=== PATIENT | female | born 1985 | race Caucasian/White ===

== ENCOUNTER 2017-11-04 14:10 | Inpatient (IN) | payer OTHER ==
[2017-11-04] MEDS ORDERED: TERBUTALINE SULFATE 1 MG/ML VIAL SC ONE (14:45)
[2017-11-04 15:23] LABS: PLATELET COUNT 264 10^3/uL (150-400)
[2017-11-04] MEDS: ACETAMINOPHEN 500 MG TAB PO PRN (19:18)
[2017-11-04] MEDS ORDERED: BETAMETHASONE IM SYRINGE IM ONE (19:57)
[2017-11-04] MEDS ORDERED: CALCIUM GLUC 10% 1 GM/10 ML VIAL IVP PRN (19:58)
[2017-11-04] MEDS ORDERED: MAGNESIUM SULF 4 GM/WATER 100 ML IV ONE (19:58)
[2017-11-04] MEDS ORDERED: Mag Sulf 500 ML IV SCH (20:00)
[2017-11-04] MEDS ORDERED: MISOPROSTOL 200 MCG TAB ONE (20:11)
[2017-11-04] MEDS ORDERED: OXYTOCIN 10 UNIT/ML VIAL ONE (20:11)
[2017-11-04] MEDS: CALCIUM CARBONATE 500 MG CHEWABLE TAB PO PRN (20:22)
--- NOTE | 2017-11-04 20:55 | GHP ---
[f rep st] PREOP HISTORY AND PHYSICAL DATE OF ADMISSION: 11/04/2017 ADMISSION DIAGNOSES: 1. Intrauterine at 36 and 5/7 weeks' gestation. 2. Severe preeclampsia. 3. History of previous low transverse section. INDICATIONS: The patient is a 32-year-old, 2, para 1-0-0-1 who is 36 and 5/7 weeks' gestatio n. The patient's has been overall uncomplicated. She was seen in the office last week and noted to have a slightly elevated blood pressure of 146/88. PIH labs were obtained, which showed an elevated ALT of 81. No proteinuria was noted. She had PIH labs repeated 2 days later, and her ALT had decreased to 56. Her blood pressure was 148/88. The patient states overall she has been feeling okay; however, she has developed a progressively worsening headache. The patient normally does have migraines; however, she states this feels different and is not resolving under the usual measures. The patient was sent over today from Labor and Delivery for evaluation. Her blood pressures on Labor and Delivery are 148/92, 145/90. status is reassuring. A long discussion was had with the robbie mcguire. She has history of previous low transverse section. Her cervix is closed. She was scheduled for repeat in several weeks. Her PIH labs were obtained, and her LFTs have incre ased. AST is 70, and ALT is 92. Because of the persistent headache despite interventions and the el evated liver functions, decision was made to admit the patient for further dose of steroids, to start magnesium sulfate, and to proceed with section in the morning. The patient and her are agreeable with this plan. PAST MEDICAL HISTORY: Significant for history of anxiety and depression, celiac disease. MEDICATIONS: vitamins, iron, and Lexapro 20 mg a day. SURGICAL HISTORY: section. ALLERGIES: No known drug allergies. SOCIAL HISTORY: The patient works in [employer] at [employer]. She is . She live s with her and their other child. She denies tobacco, alcohol, or drug use. FAMILY MEDICAL HISTORY: Noncontributory. OBSTETRICS/GYNECOLOGIC HISTORY: Menarche age 12. Periods every 30 days, lasting 8-9 days. She is a 2, para 1-0-0-1. In 07/2014, she had a primary low transverse section at 38 and 4/ 7 weeks for concern that patient was going to become preeclamptic. Per patient, that was c omplicated by GDM and PUPPS. She had a because her cervix was not favorable for induction. Current : She has had GDM-A1 but has otherwise been uncomplicated with the exception of dev elopment of elevated blood pressures in the last week and a half of . The patient does have a history of an abnormal Pap 3 years ago. She had a colposcopy which was negative. She denies any history of any sexually transmitted diseases. REVIEW OF SYSTEMS: 10-point review of systems was negative with the exception of the above-mentioned pertinent positives. There is positive movement. No loss of fluid. No vaginal bleeding. No t nahed. She does have a persistent headache which is not resolving. She denies any nausea, v omiting, fevers, or chills. She does has have intermittent scotomata and blurry vision. PHYSICAL EXAMINATION: VITAL SIGNS: Stable in the 140s over 90s, but otherwise normal. GENERAL APPE ARANCE: Alert and oriented x3. PSYCHIATRIC: She has appropriate affect. NECK: Mobile and supple. HEART: Rate is regular/regular. LUNGS: Clear to auscultation bilaterally. ABDOMEN: Gravid, non distended, nontender. EXTREMITIES: No calf tenderness. There is bilateral lower extremity edema. NEUROMUSCULAR: Grossly intact. MUSCULOSKELETAL: Grossly intact. CERVICAL: Deferred. heart tracing is category 1. LABORATORY VALUES: Blood type A positive. Antibody screen negative. Rubella immune. GBS is unknow n. HBsAg negative. HIV negative. Her 50 g glucose was elevated. She had an abnormal 3-hour glucos e tolerance test which diagnoses her gestational diabetes. [facility] labs: Creatinine is 0.8, AST is 70, ALT is 92, LDH is 459. Hemoglobin 11.5, hematocrit is 36, and her platelets are 264, white count is 10.4. ASSESSMENT AND PLAN: 32-year-old, 2, para 1-0-0-1 who is 36 and 5/7 weeks' gestation with se jimmy preeclampsia based on symptoms and elevated liver enzymes. The patient will be started on magne sium sulfate. She will be given 1 dose of betamethasone and will have a repeat section in morning. The patient has been properly consented and will be observed closely overnight. /[id number]/MODL
[2017-11-04] MEDS ORDERED: LIDOCAINE 2% JELLY 5 ML TUBE ONE (23:27)
[2017-11-04] MEDS ORDERED: LIDOCAINE 2% JELLY 5 ML TUBE TP ONE (23:51)
[2017-11-05] MEDS: CALCIUM CARBONATE 500 MG CHEWABLE TAB PO PRN (00:04)
[2017-11-05] MEDS: ACETAMINOPHEN 500 MG TAB PO PRN (01:19)
[2017-11-05] MEDS ORDERED: CITRIC ACID/SODIUM CITRATE 30 ML UDCUP PO ONE (05:41)
[2017-11-05] MEDS ORDERED: ceFAZolin 2 GM/DEXTROSE 100 ML IV ONE (05:41)
[2017-11-05] MEDS ORDERED: LR 1,000 ML IV SCH (06:00)
[2017-11-05] MEDS ORDERED: CEFAZOLIN 1 GM/DEXTROSE/50 ML BAG IV ONE (07:24)
[2017-11-05] MEDS ORDERED: LIDOCAINE 1% 2 ML INJ ONE (07:59)
[2017-11-05 08:44] LABS: PLATELET COUNT 307 10^3/uL (150-400)
--- NOTE | 2017-11-05 08:52 | PREANESOB ---
Obstetric Pre-Anesthesia Info - General Info Proposed Procedure: Repeat C Section. : 2 Para: 1 YOANA: 11/27/17 Gestational Age: 36 week(s) and 5 day(s) - Info Status: Premature Monitors: External FHR Baseline (bpm): 135 FHR Pattern: Reassuring - Labor Status PIH: Severe Magnesium Sulfate in Use: Yes Section History: Repeat Indications for Current Section: Other (Specify) (Preeclampsia.) Labor Epidural: No Anesthesia ROS: Prior C Section with spinal anesthesia. History of anxiety/depression and migraines. Celiac disease. Allergies/Adverse Reactions: Allergy/AdvReac Type Severity Reaction Status Date / Time No Known Allergies Allergy Unverified 11/04/17 14:45 Home Medications: Medication Instructions Recorded Escitalopram Oxalate [Lexapro] 1 tab PO DAILY 11/04/17 Iron 1 tab PO DAILY 11/04/17 1 tab PO DAILY 11/04/17 Visit Medications: Generic Name Dose Route Start Last Admin Trade Name Freq PRN Reason Stop Dose Admin Acetaminophen 1,000 mg 11/04/17 19:08 11/05/17 01:19 Tylenol PO 05/03/18 19:07 1,000 mg Q6HRS PRN Administration Pain, Mild/Fever, Can Take PO Calcium Carbonate 500 mg 11/04/17 19:31 11/05/17 00:04 Tums PO 05/03/18 19:30 500 mg TID PRN Administration Indigestion Calcium Gluconate 1 gm 11/04/17 19:58 Calcium Gluconate IVP 05/03/18 19:57 PRN PRN Magnesium Toxicity Escitalopram Oxalate 20 mg 11/05/17 09:00 Lexapro PO 05/04/18 08:59 DAILY AMBROCIO Magnesium Sulfate 500 mls @ 25 mls/hr 11/04/17 20:00 11/04/17 22:33 Magnesium Sulfate 20 Gm/ 500 Ml (Premix) IV 05/03/18 19:59 500 mls CONT AMBROCIO Administration Lactated Ringer's 1,000 mls @ 125 mls/hr 11/05/17 06:00 Lr IV 11/06/17 05:59 CONT AMBROCIO Discontinued Medications Generic Name Dose Route Start Last Admin Trade Name Freq PRN Reason Stop Dose Admin Betamethasone Acet/Betameth SodPhos 12 mg 11/04/17 19:57 11/04/17 20:23 Celestone Im Syringe IM 11/04/17 19:58 12 mg ONCE ONE Administration Cefazolin Sodium/Dextrose Confirm 11/05/17 07:24 Ancef 1 Gm (Premix) Administered 11/05/17 07:25 Dose 2 gm IV .STK-MED ONE Citric Acid/Sodium Citrate 30 ml 11/05/17 05:41 11/05/17 08:28 Bicitra PO 11/05/17 05:42 30 ml ONCALL ONE Administration Magnesium Sulfate 100 mls @ 200 mls/hr 11/04/17 19:58 11/04/17 22:33 Magnesium Sulf 4 Gm (Premix) IV 11/04/17 20:27 100 mls ONCE ONE Administration Cefazolin Sodium/Dextrose 100 mls @ 200 mls/hr 11/05/17 05:41 11/05/17 08:25 Ancef 2 Gm (Premix) IV 11/05/17 06:10 100 mls ONCALL ONE Administration Protocol Lidocaine Confirm 11/04/17 23:27 Lidocaine 2% Jelly Administered 11/04/17 23:28 Dose 5 mackenzie .ROUTE .STK-MED ONE Lidocaine 1 mackenzie 11/04/17 23:51 11/05/17 06:45 Lidocaine 2% Jelly TP 11/04/17 23:52 1 mackenzie ONCE ONE Administration Lidocaine HCl Confirm 11/05/17 07:59 Lidocaine Hcl 1% Administered 11/05/17 08:00 Dose 2 ml .ROUTE .STK-MED ONE Misoprostol Confirm 11/04/17 20:11 Cytotec Administered 11/04/17 20:12 Dose 1,000 mcg .ROUTE .STK-MED ONE Oxytocin Confirm 11/04/17 20:11 Pitocin Administered 11/04/17 20:12 Dose 30 unit .ROUTE .STK-MED ONE Terbutaline Sulfate 0.25 mg 11/04/17 14:45 11/04/17 17:28 Brethine SC 11/04/17 14:46 Not Given ONCE ONE - Anesthesia History Response to Local Anesthetics: Normal Anesthesia & Operative History: No Prior Problems Family Anesthesia History: Negative - Social History Substance Use/Abuse: Denies - Vital Signs Blood Pressure: 167/82 Heart Rate: 103 Respiratory Rate: 20 Height/Weight (Nursing): Height 157.48 cm Weight 100.698 kg - Focused Exam Neck exam: FROM Mallampati Score: Class 2 Mouth exam: normal dental/mouth exam Pulmonary: no respiratory distress, clear to auscultation Cardiovascular: regular rate and rhythym, no murmur, rub, or gallop Labs: 11/05/17 08:30 Patient ABO/Rh A POSITIVE 11/04/17 20:35 Uric Acid 5.6 mg/dL (2.5-6.8) 11/04/17 15:00 Total Bilirubin 0.3 mg/dL (0.1-1.4) 11/04/17 15:00 Conjugated Bilirubin 0.3 mg/dL (0.0-0.5) 11/04/17 15:00 Unconjugated Bilirubin 0.0 mg/dL (0.0-1.1) 11/04/17 15:00 AST 70 IU/L (14-46) H 11/04/17 15:00 ALT 92 IU/L (9-52) H 11/04/17 15:00 Lactate Dehydrogenase 459 IU/L (313-618) 11/04/17 15:00 - Plan Anesthetic Plan: SAB Consent Signed and on Chart: Yes Patient/Guardian Understands and Agrees to Plan: Yes
[2017-11-05] MEDS ORDERED: fentaNYL 100 MCG/2 ML INJ ONE ×2 (09:42→11:32)
[2017-11-05] MEDS ORDERED: morphINE PF 5 MG/10 ML INJ ONE (09:42)
[2017-11-05] MEDS ORDERED: DEXAMETHASONE 4 MG/ML VIAL ONE ×2 (09:47→10:59)
[2017-11-05] MEDS ORDERED: ONDANSETRON 4 MG/2 ML VIAL ONE ×2 (09:47→10:58)
[2017-11-05] MEDS ORDERED: PHENYLEPHRINE HCL 100 MCG/ML SYR ONE (10:58)
[2017-11-05] MEDS ORDERED: OXYTOCIN 100 UNITS/10 ML VIAL ONE (10:59)
[2017-11-05] MEDS ORDERED: PROPOFOL 200 MG/20 ML VIAL ONE (11:34)
[2017-11-05] MEDS ORDERED: DOCUSATE SODIUM 100 MG CAP PO PRN (12:13)
[2017-11-05] MEDS ORDERED: SIMETHICONE 80 MG TAB CHEW PO PRN (12:13)
[2017-11-05] MEDS ORDERED: POLYETHYLENE GLYCOL 3350 17 GM PKT PO PRN (12:13)
[2017-11-05] MEDS ORDERED: MAGNESIUM HYDROXIDE 30 ML UDCUP PO PRN (12:13)
[2017-11-05] MEDS ORDERED: PROMETHAZINE HCL 25 MG/ML INJ IVP PRN (12:13)
[2017-11-05] MEDS ORDERED: BISACODYL 10 MG SUPP PR PRN (12:13)
[2017-11-05] MEDS ORDERED: LACTULOSE 20 GM/30 ML UDCUP PO PRN (12:13)
--- NOTE | 2017-11-05 12:20 | OBDEL ---
Info Type: Repeat Presentation at Delivery: Vertex L&D Analgesia/Anesthesia Type: Spinal GBS+: Yes Intrapartum Medications: Generic Name Dose Route Start Last Admin Trade Name Quintonq PRN Reason Stop Dose Admin Acetaminophen 1,000 mg 11/04/17 19:08 11/05/17 01:19 Tylenol PO 05/03/18 19:07 1,000 mg Q6HRS PRN Administration Pain, Mild/Fever, Can Take PO Calcium Carbonate 500 mg 11/04/17 19:31 11/05/17 00:04 Tums PO 05/03/18 19:30 500 mg TID PRN Administration Indigestion Magnesium Sulfate 500 mls @ 25 mls/hr 11/04/17 20:00 11/04/17 22:33 Magnesium Sulfate 20 Gm/ 500 Ml (Premix) IV 05/03/18 19:59 500 mls CONT AMBROCIO Administration Discontinued Medications Generic Name Dose Route Start Last Admin Trade Name Quintonq PRN Reason Stop Dose Admin Betamethasone Acet/Betameth SodPhos 12 mg 11/04/17 19:57 11/04/17 20:23 Celestone Im Syringe IM 11/04/17 19:58 12 mg ONCE ONE Administration Citric Acid/Sodium Citrate 30 ml 11/05/17 05:41 11/05/17 09:28 Bicitra PO 11/05/17 05:42 30 ml ONCALL ONE Administration Magnesium Sulfate 100 mls @ 200 mls/hr 11/04/17 19:58 11/04/17 22:33 Magnesium Sulf 4 Gm (Premix) IV 11/04/17 20:27 100 mls ONCE ONE Administration Cefazolin Sodium/Dextrose 100 mls @ 200 mls/hr 11/05/17 05:41 11/05/17 09:25 Ancef 2 Gm (Premix) IV 11/05/17 06:10 100 mls ONCALL ONE Administration Protocol Lidocaine 1 mackenzie 11/04/17 23:51 11/05/17 06:45 Lidocaine 2% Jelly TP 11/04/17 23:52 1 mackenzie ONCE ONE Administration Terbutaline Sulfate 0.25 mg 11/04/17 14:45 11/04/17 17:28 Brethine SC 11/04/17 14:46 Not Given ONCE ONE - Infant Care Provider Business Line Manager/SPORTS MANAGEMENT INTERN: Rachell Gilman Indications for Delivery: Preeclampsia Severe (Previous c/s) Operative Report - Delivery Pre-op Diagnoses: IUP @ 36 6/7 with previous c/s with newly diagnosed preeclampsia with severe features on mag sulfate Post-op Diagnoses: IUP @ 36 6/7 with previous c/s with newly diagnosed preeclampsia with severe features on mag sulfate History of Prior Section: Yes Number of Prior Sections: 1 Nulliparous Prior to Delivery: No Indications for Prior Section: Other (Specify) (Unfavorbale cervix, suspect preeclampsia) Indications for Current Section: Other (Specify) (Preeclampsia with severe features) Procedure: Scheduled, Low Transverse (High transnverse incision was made secondary to adhered bladder to SHELTON) Surgeon: Livier Becerril [facility]: Linda Moody) Anesthesiologist: Nick Bourgeois Complications: Other (Specify) (Adhesions) Findings: A viable female infant born at 1050 in cephalic presentation with 8 and 9 Apgars. Clear amniotic fluid. Omental adhesion to anterior abdominal wall.Delayed cord clamping x 60 sec. Cord blood obtained. Placenta delivered intact with 3-vc. Omental adhesions were noted to ant abdominal wall. Bladder was adhered to [place] and a high transverse incision on uterus was made. Grossly normal appearing tubes and ovaries b/l. Specimen(s)/Path: Other (Specify) (none) IV Fluid (ml): 2,500 EBL: 800cc UO: 200 cc clear urine Drains: Jonas Gore Data YOANA: 11/27/17 Gestational Age: 36 week(s) and 6 day(s) [place] Delivery Date: 11/05/17 Delivery Time: 10:50 Sex of Infant: Female Score (1 Min): 8 Score (5 Min): 9 ICD10 Worksheet Patient Problems: Problems Problem Status Onset Pre-eclampsia affecting , antepartum Acute Previous section complicating Acute Status post repeat low transverse section Acute - ICD10 Problem Qualifiers (1) Pre-eclampsia affecting , antepartum (2) Previous section complicating (3) Status post repeat low transverse section
[2017-11-05] MEDS ORDERED: NALOXONE HCL 0.4 MG/ML INJ IVP PRN (12:23)
[2017-11-05] MEDS ORDERED: HYDROmorphONE/DILAUDID 1 MG/ML INJ IVP PRN (12:23)
[2017-11-05] MEDS ORDERED: PHENYLEPHRINE HCL 100 MCG/ML SYR IVP PRN (12:23)
[2017-11-05] MEDS ORDERED: ONDANSETRON 4 MG/2 ML VIAL IVP PRN (12:23)
[2017-11-05] MEDS ORDERED: MAGNESIUM SULFATE 20 GM in D5W 500 ML IV SCH (12:30)
[2017-11-05] MEDS ORDERED: KETOROLAC 30 MG/1 ML SDV ONE (13:19)
[2017-11-05] MEDS: KETOROLAC 30 MG/1 ML SDV IVP SCH ×2 (13:21→19:35)
[2017-11-05] MEDS ORDERED: SCOPOLAMINE HYDROBROMIDE 1 MG/3 DAYS PATCH TD ONE ×2 (14:16→14:27)
--- NOTE | 2017-11-05 14:27 | POSTANESTH ---
Post Anesthetic Evaluation Cardiovascular Status: Normal, Stable, Similar to Pre-Op Cond Respiratory Status: Normal, Stable, Similar to Pre-op Cond. Level of Consciousness/Mental Status: Can Participate in Eval, Alert and Oriented Pain Control: Adequate, Prn Tx Ordered Nausea/Vomiting Control: Inadeq, Add Tx Reqired (Some nausea during recovery getting scopolamine patch.) Complications Possibly Related to Anesthesia: None Noted
[2017-11-05] MEDS: ESCITALOPRAM OXALATE 10 MG TAB PO SCH (18:31)
[2017-11-05] MEDS: SENNOSIDES/DOCUSATE SODIUM TAB PO SCH (23:09)
[2017-11-06] MEDS: HYDROmorphONE/DILAUDID 1 MG/ML INJ IVP PRN ×3 (00:59→11:37)
[2017-11-06] MEDS: KETOROLAC 30 MG/1 ML SDV IVP SCH ×3 (01:13→13:45)
--- NOTE | 2017-11-06 06:06 | GOP ---
[f rep st] OPERATIVE REPORT DATE OF OPERATION: 11/05/2017 SURGEON: Livier Becerril DO PERSONNEL WORKER: Aileen Simmons MD and MARIBEL Steven. ANESTHESIA: Spinal. ANESTHESIOLOGIST: Dr. Nick Bourgeois. PREOPERATIVE DIAGNOSIS: Intrauterine at 36 and 6 weeks' gestation with a history of a previous low transverse section with newly diagnosed preeclampsia with severe features. POSTOPERATIVE DIAGNOSIS: Intrauterine 36 and 6 weeks with a history of prior low transverse with newly diagnosed preeclampsia with severe features. PROCEDURE PERFORMED: 1. Repeat transverse section. 2. Lysis of adhesions. FINDINGS: A viable female born at 1015, in cephalic presentation with 8 and 9 Apgars. Clear amniotic fluid noted upon entry to amniotic sac. Delayed cord clamping x60 seconds. Cord blood was obtained. Placenta delivered intact with 3-vessel cord. There were omental adhesions noted to the anterior abdominal wall as well as bladder adherent to lower uterine segment so a high transverse incision on the uterus was made. Grossly normal appearing tubes and ovaries bilaterally. ESTIMATED BLOOD LOSS: 800 cc. INDICATIONS: Patient is a 32-year-old, 2, para 1-0-0-1 at 36 and 6 weeks with a previous who has newly diagnosed preeclampsia with severe features on magnesium sulfate. The patient has had elevated blood pressures 140s to 150s systolic over 80s to 90s diastolic over the last 2 weeks with elevated liver enzymes. Now with worsening headaches and new complaint of visual changes in the last 48 hours. The patient was given rescue steroids and started on magnesium sulfate. The patient understands all risks of the procedure including bleeding, infection, damage to surrounding organs, and wants to proceed with surgery at this time. Patient was properly consented. DESCRIPTION OF PROCEDURE: Patient was taken to the operating room where she was given spinal anesthesia with some difficulty. She was then prepped and draped in the usual sterile manner, and placed in supine position with leftward tilt. Powell catheter was already placed in her bladder. After adequate anesthesia was assured, a Pfannenstiel skin incision was made 2 cm above the previous scar that was noted on top of the mons. The incision was carried down to the underlying fascia with the Bovie. The fascia was then incised in the midline. Fascial incision was then extended laterally with Dior scissors. The superior aspect of the fascial incision was grasped with Ramon clamps, elevated, and rectus muscles dissected off sharply. Inferior aspect of the fascial incision was then grasped with Ramon clamps, elevated, and rectus muscles dissected off sharply. Rectus muscle was then in the midline. Peritoneum was then visualized and entered bluntly. There was difficulty extending the incision superiorly and inferiorly. There were noted to be omental adhesions here. The incision was extended superiorly with the knife, paying careful attention to the omentum, and then inferiorly in the same fashion. There was inadequate visualization of the bladder at this time. It seemed to be adhered densely to the lower uterine segment and the previous incision. A bladder blade was inserted. The vesicouterine peritoneum was unable to be identified, so at this time a decision was made to make a higher transverse uterine incision. The incision was extended anteriorly and posteriorly digitally. There was clear amniotic fluid noted upon entry to the amniotic sac. Baby girl was then delivered in cephalic presentation without difficulty. Mouth and nose were bulb suctioned. We delayed cord clamping for 1 minute. The cord was then clamped x2 and cut and the infant handed off to an awaiting nurse practitioner. Cord blood was obtained and sent. Placenta was then removed spontaneously intact with 3-vessel cord. Uterus was then exteriorized and at this point noted to have omental adhesions both posteriorly and anteriorly. These were lysed. The uterus was then cleared of all clots and debris. The uterine incision was then repaired with 0 Vicryl in a running, locked fashion. Hemostasis was noted. A second imbricating layer of suture was then performed with 0 Vicryl very carefully, not knowing exactly the location of the bladder. At this time, we did try to feel for the Powell bulb. That was noted, and careful attention was made while placing further stitches in the uterus, [id number] stitches for hemostasis. Hemostasis was finally achieved. The uterus was then returned to the abdomen. The gutters were cleared of all clots and debris. Reinspection of the uterine incision revealed some oozing so at this time surgical Lavell was placed, and hemostasis was achieved. The rectus muscles were then reapproximated with 2-0 Vicryl, in an inverted mattress fashion. The fascia was then closed with 0 Vicryl in a running fashion. Hemostasis was noted. The skin was then closed with 4-0 Vicryl on a Erik needle. The patient tolerated the procedure well. There were no complications. Sponge, lap, needle and instrument counts were correct x2. The patient was then taken to the recovery room in stable condition. IV FLUIDS: 2500 cc LR. URINE OUTPUT: 200 cc of clear urine at the end of the procedure. COMPLICATIONS: None. /[id number]/MODL MTDD
[2017-11-06 06:32] LABS: PLATELET COUNT 229 10^3/uL (150-400)
[2017-11-06] MEDS: SENNOSIDES/DOCUSATE SODIUM TAB PO SCH ×2 (08:49→19:35)
[2017-11-06] MEDS: ESCITALOPRAM OXALATE 10 MG TAB PO SCH (09:00)
--- NOTE | 2017-11-06 10:09 | OBPP ---
Progress Note Assessment/Plan: Assessment: POD 1 s/p RCS with preeclampsia on Magnesium sulfate labs cont to show rising LFTs mild nausea good UOP - clear Plan: will cont magnesium until labs repeated at noon. B/P stable and asymptomatic 11/06/17 10:04 Subjective/ Course: 11/06/17 10:07 Pt doing ok except mild nausea. having some post op pain. wasn't able to sleep more than about 2 hrs due to BF- baby latching well. no visual change and no POLK. Not OOB yet. justus liquids well. Objective: 11/06/17 05:25 11/06/17 05:25 Patient ABO/Rh A POSITIVE 11/04/17 20:35 Uric Acid 7.9 mg/dL (2.5-6.8) H 11/06/17 05:25 Total Bilirubin 0.3 mg/dL (0.1-1.4) 11/06/17 05:25 Conjugated Bilirubin 0.2 mg/dL (0.0-0.5) 11/06/17 05:25 Unconjugated Bilirubin 0.1 mg/dL (0.0-1.1) 11/06/17 05:25 AST 162 IU/L (14-46) H 11/06/17 05:25 ALT 245 IU/L (9-52) H 11/06/17 05:25 Lactate Dehydrogenase 691 IU/L (313-618) H 11/06/17 05:25 Temp Pulse Resp BP Pulse Ox 36.0 C 103 H 18 120/98 H 93 11/06/17 06:34 11/05/17 08:56 11/06/17 06:34 11/06/17 07:20 11/06/17 07:20 Uterine Position/Fundal Height: At Umbilicus Uterine Tone: Firm Physical Exam - Physical Exam Abdomen: non-tender (approp post op tenderness), soft, dressing (CDI), other ( FF at umb) Extremities: non-tender, pedal edema (moderate) Skin: normal color, warm/dry Neuro/Psych: alert, normal mood/affect
[2017-11-06 13:23] LABS: PLATELET COUNT 251 10^3/uL (150-400)
[2017-11-06] MEDS: IBUPROFEN 600 MG TAB PO PRN ×2 (14:15→20:02)
[2017-11-06] MEDS ORDERED: PATCH REMOVAL 1 EA PATCH TD ONE (14:28)
[2017-11-06] MEDS: HYDROCODONE/APAP 5/325 TAB PO PRN ×2 (15:44→19:34)
[2017-11-06 17:27] VITALS: RESP 16
[2017-11-07] MEDS: HYDROCODONE/APAP 5/325 TAB PO PRN ×2 (00:09→05:50)
[2017-11-07] MEDS: IBUPROFEN 600 MG TAB PO PRN ×4 (01:57→23:41)
[2017-11-07] MEDS: ESCITALOPRAM OXALATE 10 MG TAB PO SCH ×2 (08:41→09:03)
[2017-11-07] MEDS: SENNOSIDES/DOCUSATE SODIUM TAB PO SCH ×2 (08:42→19:21)
[2017-11-07] MEDS: oxyCODONE IR 5 MG TAB PO PRN ×4 (10:53→23:42)
--- NOTE | 2017-11-07 20:01 | OBPP ---
Progress Note Assessment/Plan: Assessment: 32 y/o POD #3 s/p LTCS and MgSo4 secondary to severe pre-eclampsia Plan: Oxy IR today, ambulate with assistance. support and APNO cream. Routine POC. 11/07/17 20:01 Subjective/ Course: 11/06/17 10:07 Pt doing ok except mild nausea. having some post op pain. wasn't able to sleep more than about 2 hrs due to BF- baby latching well. no visual change and no POLK. Not OOB yet. justus liquids well. 11/07/17 19:57 Late entry note from exam @ 9:30 am. Pt is feeling better, she has struggled with pain control on [place] and will try Oxy IR. She is ambulating, voiding without difficulty and has min lochia. She is having difficulties breast feeding and has terrible pain from her nipples. She denies POLK, scotomata or pre -eclampsia pain. Objective: 11/06/17 13:00 11/06/17 13:00 Patient ABO/Rh A POSITIVE 11/04/17 20:35 Uric Acid 7.7 mg/dL (2.5-6.8) H 11/06/17 13:00 Total Bilirubin 0.3 mg/dL (0.1-1.4) 11/06/17 05:25 Conjugated Bilirubin 0.2 mg/dL (0.0-0.5) 11/06/17 05:25 Unconjugated Bilirubin 0.1 mg/dL (0.0-1.1) 11/06/17 05:25 AST 144 IU/L (14-46) H 11/06/17 13:00 ALT 237 IU/L (9-52) H 11/06/17 13:00 Lactate Dehydrogenase 682 IU/L (313-618) H 11/06/17 13:00 Temp Pulse Resp BP Pulse Ox 36.7 C 89 16 138/91 H 96 11/07/17 08:20 11/07/17 16:50 11/07/17 08:20 11/07/17 16:50 11/07/17 12:30 Uterine Position/Fundal Height: Umbilicus -2 Uterine Tone: Firm Physical Exam - Physical Exam Neck: non-tender, full range of motion, supple Respiratory: chest non-tender, lungs clear, normal breath sounds Cardiac/Chest: regular rate, rhythm Abdomen: normal bowel sounds, incision (c/d/i) Extremities: swelling (1+), Jeff's sign (neg)
[2017-11-08 04:14] VITALS: O2SAT 95
[2017-11-08] MEDS: IBUPROFEN 600 MG TAB PO PRN ×2 (05:23→11:35)
[2017-11-08] MEDS: oxyCODONE IR 5 MG TAB PO PRN ×3 (05:23→13:23)
[2017-11-08] MEDS: SENNOSIDES/DOCUSATE SODIUM TAB PO SCH (09:26)
[2017-11-08] MEDS: ESCITALOPRAM OXALATE 10 MG TAB PO SCH (09:26)
[2017-11-08 09:58] VITALS: BP 133/87; PULSE 88; TEMP 98.2
--- NOTE | 2017-11-08 11:33 | OBPP ---
Progress Note Assessment/Plan: Assessment: pod# 3 s/p RLTCS severe pre eclampsia - status post magneisum sulfate breast feeding anemia Plan: routine post care and discharge instructions pih precautions iron 11/08/17 11:31 Subjective/ Course: 11/06/17 10:07 Pt doing ok except mild nausea. having some post op pain. wasn't able to sleep more than about 2 hrs due to BF- baby latching well. no visual change and no POLK. Not OOB yet. justus liquids well. 11/07/17 19:57 Late entry note from exam @ 9:30 am. Pt is feeling better, she has struggled with pain control on [place] and will try Oxy IR. She is ambulating, voiding without difficulty and has min lochia. She is having difficulties breast feeding and has terrible pain from her nipples. She denies POLK, scotomata or pre -eclampsia pain. 11/08/17 11:31 patient is doing well. headache has resolved. still swollen but ambulating well. breast feeding is going well. denies visual changes or ruq pain. normal lochia. wants to go home Objective: 11/06/17 13:00 11/06/17 13:00 Patient ABO/Rh A POSITIVE 11/04/17 20:35 Uric Acid 7.7 mg/dL (2.5-6.8) H 11/06/17 13:00 Total Bilirubin 0.3 mg/dL (0.1-1.4) 11/06/17 05:25 Conjugated Bilirubin 0.2 mg/dL (0.0-0.5) 11/06/17 05:25 Unconjugated Bilirubin 0.1 mg/dL (0.0-1.1) 11/06/17 05:25 AST 144 IU/L (14-46) H 11/06/17 13:00 ALT 237 IU/L (9-52) H 11/06/17 13:00 Lactate Dehydrogenase 682 IU/L (313-618) H 11/06/17 13:00 Temp Pulse Resp BP Pulse Ox 36.8 C 88 16 133/87 H 95 11/08/17 08:45 11/08/17 08:45 11/08/17 08:45 11/08/17 08:45 11/08/17 08:45 Physical Exam - Physical Exam Respiratory: chest non-tender, lungs clear, normal breath sounds Cardiac/Chest: normal peripheral pulses, regular rate, rhythm Abdomen: normal bowel sounds, non-tender Extremities: normal range of motion, non-tender, normal capillary refill, pedal edema Skin: normal color, warm/dry, other (incision clean dry and intact) Neuro/Psych: no motor/sensory deficits, alert, normal mood/affect, oriented x 3
--- NOTE | 2017-11-08 11:43 | OBGCSDC ---
General Delivery Information - General Info : 2 Para: 2 Abortions: 0 Type: Repeat L&D Analgesia/Anesthesia Type: Spinal Admission Date: 11/05/17 Labs: Patient ABO/Rh A POSITIVE 11/04/17 20:35 Hct 27.6 % (38.0-47.0) L 11/06/17 13:00 - Hospital Course Antepartum: 11/08/17 11:41 developed increased pressures at 35 weeks. elevated liver enzymes. worsening headache which would not resolve with usual steps. hx prior c section. rescue dose of betamethasone. magnesium sulfate. : 11/06/17 10:07 Pt doing ok except mild nausea. having some post op pain. wasn't able to sleep more than about 2 hrs due to BF- baby latching well. no visual change and no POLK. Not OOB yet. justus liquids well. 11/07/17 19:57 Late entry note from exam @ 9:30 am. Pt is feeling better, she has struggled with pain control on [place] and will try Oxy IR. She is ambulating, voiding without difficulty and has min lochia. She is having difficulties breast feeding and has terrible pain from her nipples. She denies POLK, scotomata or pre -eclampsia pain. 11/08/17 11:31 patient is doing well. headache has resolved. still swollen but ambulating well. breast feeding is going well. denies visual changes or ruq pain. normal lochia. wants to go home - Delivery Providers Surgeon: Livier Becerril Consulting Senior Practice Director: Linda Moody) Anesthesiologist: Nick Bourgeois - Delivery Number of Prior Sections: 1 Indications for Current Section: Other (Specify) (Preeclampsia with severe features) Surgical Procedures: Scheduled, Low Transverse (High transnverse incision was made secondary to adhered bladder to [place]) Intra-op Complications: Other (Specify) (Adhesions) EBL: 800cc UO: 200 cc clear urine Data YOANA: 11/27/17 Gestational Age: 37 week(s) and 2 day(s) Witt Delivery Date: 11/05/17 Delivery Time: 10:50 Sex of Infant: Female Score (1 Min): 8 Score (5 Min): 9 Discharge Information - Discharge Information Prescriptions: oxyCODONE IR [Oxycodone Ir (*)] 5 - 10 mg PO Q4HRS PRN #30 tab PRN Reason: Pain, Severe Able To Take Po Ibuprofen [Motrin (*)] 600 mg PO Q6HRS PRN #30 tab PRN Reason: Inflammation Condition: Good Instruction/Follow Up: One Week (blood pressure check), Four Weeks (mood check ) , Six Weeks (post visit)
[2017-11-08] MEDS ORDERED: IRON POLYSAC/IRON HEME 28 MG TAB PO SCH (11:45)
== END 2017-11-08 13:40 | disposition home or self-care (01) | DRG 766 ==
LOC: FLD 14:10 → OBSVTOIN 11-05 16:40 → FOB 11-06 18:05
PROVIDERS: ADMIT Obstetrics & Gynecology; ATTEND Obstetrics & Gynecology
PROC: 10D00Z1 Extraction of Products of Conception, Low, Open Approach (ICD-10-PCS; principal; 2017-11-05)
DX: O14.14 Severe pre-eclampsia complicating childbirth (principal); O34.211 Maternal care for low transverse scar from previous cesarean delivery; Z37.0 Single live birth; Z3A.36 36 weeks gestation of pregnancy
CPT/HCPCS: G0378; J0610; J0690; J0702; J1100; J1170; J1885; J2274; J2370; J2405; J2550; J2590; J2704; J3010; J3475